=== PATIENT | male | born 1985 | race Caucasian/White ===

== ENCOUNTER 2018-01-30 18:16 | Emergency (ER) | payer MEDICAID ==
[~2018-01-30] VITALS: Ht 177.8 cm; Wt 102.5 kg
[2018-01-30 18:20] VITALS: BP_SYST 149
[2018-01-30] MEDS ORDERED: NACL 0.9% 1,000 ML IV ONE (18:45)
[2018-01-30] MEDS ORDERED: KETOROLAC TROMETHAMINE 30 MG VIAL IVP ONE (18:45)
[2018-01-30] MEDS ORDERED: PROCHLORPERAZINE EDISYLATE 10 MG/2 ML VIAL IVP ONE (18:45)
[2018-01-30] MEDS ORDERED: SUMAtriptan SUCCINATE 6 MG/0.5 ML VIAL SUBCUT ONE (19:00)
[2018-01-30 20:06] VITALS: BP_SYST 137
== END 2018-01-30 20:06 | disposition home or self-care (01) ==
LOC: SED 18:16
DX: G43.909 Migraine, unspecified, not intractable, without status migrainosus (principal); R03.0 Elevated blood-pressure reading, without diagnosis of hypertension
CPT/HCPCS: 96361; 96372; 96374; 96375; 99284; J0780; J1885; J3030; J7030

== ENCOUNTER 2020-06-07 11:39 | Emergency (ER) | payer MEDICAID ==
[~2020-06-07] VITALS: Ht 177.8 cm; Wt 108.9 kg
[2020-06-07 11:43] VITALS: BP_SYST 199
[2020-06-07] MEDS ORDERED: NACL 0.9% 1,000 ML IV ONE (12:01)
[2020-06-07] MEDS ORDERED: ONDANSETRON HCL 4 MG/2 ML VIAL IVP ONE (12:15)
[2020-06-07] MEDS ORDERED: KETOROLAC TROMETHAMINE 30 MG VIAL IVP ONE (12:15)
[2020-06-07 12:53] LABS: BASOPHILS # (AUTO) 0.1 K/uL (0.0-0.2); BASOPHILS % (AUTO) 0.5 % (0.0-2.0); EOSINOPHILS % (AUTO) 0.1 % (0.0-4.0); HEMATOCRIT 47.6 % (36-54); LYMPHOCYTES # (AUTO) 1.2 K/uL (1.0-5.5); LYMPHOCYTES % (AUTO) 8.2 % (20.5-51.5); MEAN CORPUSCULAR HEMOGLOBIN 29 pg (27-31); MEAN CORPUSCULAR HGB CONC 34 % (32-36); MEAN CORPUSCULAR VOLUME 85 fL (79.0-98.0); MONOCYTES # (AUTO) 0.6 K/uL (0.0-1.0); NEUTROPHILS # (AUTO) 13.3 K/uL (1.8-7.7); NEUTROPHILS % (AUTO) 87.2 % (40.0-70.0); PLATELET COUNT (AUTO) 300 K/uL (130-430); RED BLOOD CELL COUNT(AUTO) 5.58 MIL/uL (4.2-6.2); RED CELL DISTRIBUTION WIDTH 13.7 % (9.0-15.0); WHITE BLOOD COUNT (AUTO) 15.2 K/uL (4.8-10.8)
[2020-06-07 13:45] LABS: CALCIUM 8.5 mg/dL (8.4-11.0); CREATININE 0.72 mg/dL (0.55-1.30)
[2020-06-07 13:47] LABS: POTASSIUM 4.1 mmol/L (3.5-5.1)
[2020-06-07 14:00] LABS: ALBUMIN 3.9 g/dL (3.4-4.8); THYROID STIMULATING HORMONE 0.41 uIu/mL (0.36-3.74); TOTAL BILIRUBIN 0.5 mg/dL (0.0-1.0)
[2020-06-07] MEDS ORDERED: PANTOPRAZOLE SODIUM 40 MG/VIAL (PROTONIX) IVP ONE (14:15)
[2020-06-07] MEDS ORDERED: MORPHINE 2 MG/ML INJ. SYRINGE IVP ONE (14:15)
[2020-06-07 14:47] VITALS: BP_SYST 199
== END 2020-06-07 14:45 | disposition home or self-care (01) ==
LOC: SED 11:39
DX: K29.70 Gastritis, unspecified, without bleeding (principal); Z85.850 Personal history of malignant neoplasm of thyroid
CPT/HCPCS: 36415; 74176; 80053; 83690; 84439; 84443; 85025; 87040; 96361; 96374; 96375; 99284; C9113; J1885; J2270; J2405; J7030